=== PATIENT | male | born 1975 | race Caucasian/White ===

== ENCOUNTER 2023-05-12 17:59 | Emergency (ER) | payer BC, SELFPAY ==
--- NOTE | ~2023-05-12 | XR_ITS ---
EXAMINATION: XR wrist RT min 3V DATE: 05/12/2023 18:17 INDICATION: Right wrist pain. Fall. TECHNIQUE: 4 views of right wrist were obtained. COMPARISON: Right wrist radiographs 05/09/2016 FINDINGS: There is an avulsion fracture of dorsal pole of triquetrum. Joint spaces are normal. IMPRESSION: 1. Avulsion fracture of dorsal pole of triquetrum. Reviewed, dictated and finalized at location E. UNTING AUDITOR
--- NOTE | 2023-05-12 18:07 | ED.UPPEXIN ---
HPI - Extremity Injury (Upper) General Chief Complaint: Extremity Injury, Upper Stated Complaint: Right Wrist Injury Time Seen by Provider: 05/12/23 18:19 Source: patient, RN notes reviewed and old records reviewed Mode of arrival: ambulatory Limitations: no limitations History of Present Illness HPI narrative: 48-year-old male presents to the [facility] with complaints of right dorsal wrist pain since 11:00 a.m.. Patient states that he slipped and fell landing with his outstretched arms. Tenderness to the dorsal aspect distal ulna. Patient's capillary refill under 2 seconds. Sensation intact in all 5 fingers. No treatment prior to arrival Denies hitting head. No loss of consciousness. Onset (ago): hour(s) Treatments prior to arrival: other (None) Related Data Home Medications Medication Instructions Recorded Confirmed No Home Medications 11/06/22 05/12/23 Allergies Allergy/AdvReac Type Severity Reaction Status Date / Time No Known Allergies Allergy Verified 05/12/23 18:21 Review of Systems Review of Systems: All systems reviewed & are unremarkable except as noted in HPI and below Constitutional: Constitutional: Reports no additional constitutional complaints Eyes: Eyes: Reports no additional eye complaints ENT: Reports system reviewed and no additional complaints, except as documented Cardiovascular: Cardiovascular: Reports no additional cardiovascular complaints, Denies chest pain and Denies dyspnea Respiratory: Respiratory: Reports no additional respiratory complaints, Denies chest congestion, Denies cough and Denies dyspnea Gastrointestinal: Gastrointestinal: Reports no additional gastrointestinal complaints, Denies abdominal pain, Denies nausea and Denies vomiting Musculoskeletal: Musculoskeletal: Reports as per HPI and Reports arthralgias (Right wrist) Integumentary/Breasts: Skin/Breast: Reports system reviewed and no additional complaints, except as docu Neurologic: Reports system reviewed and no additional complaints, except as documented Psychiatric: Psychiatric: Reports no additional psychiatric complaints Allergic/Immunologic: Allergic/Immunologic: Reports no additional allergic/immunologic complaints [facility] Social History Social History Smoking status: Never smoker Tobacco type: cigarettes Alcohol intake: current Alcohol use details: beer occasionally Substance use: never Substance use type: does not use Lack of Transportation: No Lack of Food: Never True Current Housing: I Have Housing Concerned About Future Housing: No Difficulty Paying Gas/Electric Bills: No Difficulty Paying for Meds: No Currently Unemployed: No Education: Bachelor's Degree Difficulty w/ Childcare or Family Care: No Comments At the time of my signature, I reviewed and agree with the nursing past medical, surgical, social, and family history. There is no relevant family history pertinent to the patient complaint. Exam Const: General: cooperative, healthy appearing, comfortable, no acute distress, well developed, alert and well nourished Nutritional Appearance: well nourished Orientation/consciousness: patient oriented x3 Limitations: no limitations HENMT: Head: normal to inspection Ears: hearing grossly normal bilaterally and external ears normal Face/Nose/Sinus: Normal external nose present, Normal nares present, Normal nasal mucous membranes and turbinates present, normal facial exam and face symmetric Face and sinus: normal facial exam and face symmetric Mouth: Yes Normal oral and palatal mucosa present, Yes lip normal and Yes moist mucous membranes Eyes: General: appearance normal, both eyes and all related structures Alignment and Position: alignment normal Periorbital: periorbital findings normal Pupils: Equal, round and reactive pupils present EOM: EOMs intact bilaterally Neck: Neck: normal visual inspection, full ROM
[2023-05-12 18:08] VITALS: BP 127/84; PULSE 80; RESP 16; TEMP 36.3; O2SAT 99
== END 2023-05-12 18:45 | disposition home or self-care (01) ==
PROVIDERS: Emergency Provider Nurse Practitioner
DX: S62.115A Nondisplaced fracture of triquetrum [cuneiform] bone, left wrist, initial encounter for closed fracture (principal); W01.0XXA Fall on same level from slipping, tripping and stumbling without subsequent striking against object, initial encounter
CPT/HCPCS: 29125; 73110; 99214; G0463

== ENCOUNTER 2023-05-27 12:24 | Outpatient (CLI) | payer BC, SELFPAY ==
--- NOTE | ~2023-05-27 | XR_ITS ---
Right wrist Technique: PA, oblique, lateral, and ulnar deviation views were obtained. Clinical History: Injury Findings: No acute fracture or dislocation is seen. Osseous alignment is anatomic. Joint spaces are p reserved. Soft tissues are unremarkable. Impression: Unremarkable right wrist radiographs. Reviewed, dictated and finalized at location . TION ORDNANCE OFFICER Impression: Unremarkable right wrist radiographs.
== END 2023-05-27 12:25 | disposition home or self-care (01) ==
PROVIDERS: Visit Provider Physician Assistant Surgical
DX: S69.91XA Unspecified injury of right wrist, hand and finger(s), initial encounter (principal); X58.XXXA Exposure to other specified factors, initial encounter
CPT/HCPCS: 73110